=== PATIENT | male | born 1960 | race American Indian/Alaskan Native ===

== ENCOUNTER 2018-02-19 22:49 | Emergency (ER) | payer OTHER ==
[~2018-02-19] VITALS: Ht 177.8 cm; Wt 88.5 kg
== END 2018-02-20 00:19 | disposition home or self-care (01) ==
LOC: ED 22:49
DX: H10.9 Unspecified conjunctivitis (principal); Z87.891 Personal history of nicotine dependence; Z23 Encounter for immunization; Z79.899 Other long term (current) drug therapy
CPT/HCPCS: 90471; 90715; 99283

== ENCOUNTER 2023-01-25 07:30 | Emergency (ER) | payer OTHER ==
[~2023-01-25] VITALS: Ht 177.8 cm; Wt 88.5 kg
[2023-01-25 10:35] VITALS: BP 120/93
--- NOTE | 2023-01-27 15:13 | EKG ---
[facility] [address] [facility] [place], [place] [address] Signed Normal sinus rhythm Normal ECG No previous ECGs available Confirmed by JAYESH FAM MD ([id number]) on 01/27/2023 3:13:29 PM Electronically Signed By: JAYESH FAM 01/27/23 1513 PATIENT NAME: KALYAN GAN Electrocardiogram DATE OF : 58 PHYSICIAN: JAYESH FAM REPORT #: [id number] REPORT IS CONFIDENTIAL AND NOT TO BE RELEASED WITHOUT AUTHORIZATION
--- NOTE | 2023-01-27 15:16 | EKG ---
[facility] [address] [place] [address] Signed Sinus bradycardia with sinus arrhythmia Otherwise normal ECG When compared with ECG of 25-JAN-2023 07:29, (Unconfirmed) Vent. rate has decreased BY 30 BPM Confirmed by JAYESH FAM MD ([id number]) on 01/27/2023 3:15:43 PM Electronically Signed By: JAYESH FAM 01/27/23 1516 PATIENT NAME: KALYAN GAN Electrocardiogram DATE OF : 58 PHYSICIAN: JAYESH FAM REPORT #: [id number] REPORT IS CONFIDENTIAL AND NOT TO BE RELEASED WITHOUT AUTHORIZATION
== END 2023-01-25 10:35 | disposition home or self-care (01) ==
LOC: ED 07:30
DX: R07.89 Other chest pain (principal); Z87.891 Personal history of nicotine dependence; Z91.018 Allergy to other foods
CPT/HCPCS: 36415; 71045; 80053; 83735; 84484; 85025; 85379; 93005; 93010; 99285 25; A9270; A9270-GY